=== PATIENT | female | born 1995 | race Caucasian/White ===

== ENCOUNTER 2018-07-17 20:56 | Emergency (ER) | payer BC, OTHER ==
--- NOTE | 2018-07-17 20:59 | PDOC ---
Rapid Medical Evaluation Time Seen by Provider: 07/17/18 20:59 Medical Evaluation: Allergies Allergy/AdvReac Type Severity Reaction Status Date / Time No Known Allergies Allergy Verified 09/25/14 15:16 07/17/18 20:59 I have performed a brief in-person evaluation of this patient. The patient presents with a chief complaint of: R sided CP that started tonight. No sob, diaphoresis, n/v palpitations, leg pain/swelling. No illit drug use. No tob use. No sig fmhx, No RF for DVT/PE Pertinent physical exam findings:appears uncomfortable and crying at triage, stable by vitals I have ordered the following: The patient will proceed to the ED for further evaluation. Discharge Disposition - Diagnosis Chest pain Qualifiers: Chest pain type: unspecified Qualified Code(s): R07.9 - Chest pain, unspecified - Referrals - Patient Instructions - Post Discharge Activity
[2018-07-17 21:02] VITALS: BP 140/89; PULSE 74; TEMP 98.3; BMI 23.3
--- NOTE | 2018-07-17 22:16 | PDOC ---
History of Present Illness - General Chief Complaint: Chest Pain Stated Complaint: CHEST PAIN Time Seen by Provider: 07/17/18 20:59 History Source: Patient - History of Present Illness Initial Comments: 07/17/18 23:33 23-year-old complaining of right breast pain and right sided chest pain since this afternoon. Patient reports that the pain is worse with moving and breathing. Patient currently not on OCP, denies prolonged sitting, recent travel. Denies nausea, vomiting, left-sided chest pain, diaphoresis,. Has no past medical history. Past History - Past Medical History Allergies/Adverse Reactions: Allergies Allergy/AdvReac Type Severity Reaction Status Date / Time No Known Allergies Allergy Verified 07/17/18 21:02 Home Medications: Ambulatory Orders Ibuprofen 600 mg PO QID PRN #30 tablet 07/17/18 COPD: No - Immunization History Immunization Up to Date: Yes - Suicide/Smoking/Psychosocial Hx Smoking Status: No Smoking History: Unknown if ever smoked Have you smoked in the past 12 months: No Number of Cigarettes Smoked Daily: 0 Information on smoking cessation initiated: No Hx Alcohol Use: No Drug/Substance Use Hx: No Substance Use Type: None Review of Systems - Review of Systems Able to Perform ROS?: Yes Is the patient limited Korean proficient: No Constitutional: No: Symptoms Reported, See HPI, Chills, Diaphoresis, Fever, Loss of Appetite, Malaise, Night Sweats, Weakness, Weight Stable, Unintentional Wgt. Loss, Unexplained wgt Loss, Other Cardiac (ROS): Yes: Chest Pain. No: Symptoms Reported, See HPI, Edema, Irregular Heart Rate, Lightheadedness, Palpitations, Syncope, Chest Tightness, Other *Physical Exam - Vital Signs Last Vital Signs Temp Pulse Resp BP Pulse Ox 98.3 F 74 16 140/89 100 07/17/18 20:59 07/17/18 20:59 07/17/18 20:59 07/17/18 20:59 07/17/18 20:59 - Physical Exam General Appearance: Yes: Appropriately Dressed Respiratory/Chest: positive: Chest Tender (right-sided chest tendernesson palpation), Lungs Clear, Normal Breath Sounds Cardiovascular: positive: Regular Rhythm, Regular Rate Gastrointestinal/Abdominal: positive: Normal Bowel Sounds, Soft Extremity: positive: Normal Capillary Refill Integumentary: positive: Normal Color, Dry, Warm Neurologic: positive: Fully Oriented, Alert Heart Score/ECG Review - ECG Intrepretation Rhythm: Regular Rhythm Comment:: 07/17/18 23:34 NSR: 70 bpm ED Treatment Course - ADDITIONAL ORDERS Additional order review: Laboratory Results 07/17/18 22:26 Urine HCG, Qual Negative - RADIOLOGY Radiology Studies Ordered: Category Date Time Status CHEST PA & LAT [RAD] Stat Radiology 07/17/18 22:16 Taken - Medications Given in the ED: ED Medications Discontinued Medications Generic Name Dose Route Start Last Admin Trade Name Freq PRN Reason Stop Dose Admin Ibuprofen 600 mg 07/17/18 22:47 07/17/18 23:20 Motrin - PO 07/17/18 22:48 600 mg ONCE ONE Administration Medical Decision Making - Medical Decision Making 07/17/18 23:35 costochondritis /chest pain p: chest x-ray nSAIDs *DC/Admit/Observation/Transfer Diagnosis at time of Disposition: Costochondritis, acute Chest pain Qualifiers: Chest pain type: unspecified Qualified Code(s): R07.9 - Chest pain, unspecified - Discharge Dispostion Disposition: HOME - Prescriptions Prescriptions: Ibuprofen 600 mg PO QID PRN #30 tablet PRN Reason: Pain - Referrals - Patient Instructions Printed Discharge Instructions: DI for Costochondritis Additional Instructions: Take ibuprofen every 6 hours as needed for pain. You may apply warm compress or ice to the area. Do light stretches. It is important that you follow-up with your doctor as soon as possible. Return to the emergency room for any worsening symptoms. - Post Discharge Activity Forms/Work/School Notes: Back to Work
[2018-07-17] MEDS ORDERED: IBUPROFEN 600 MG TABLET (FP) PO ONE ×2 (22:47→23:13)
--- NOTE | 2018-07-18 12:08 | EKG ---
Test Reason : Blood Pressure : / mmHG Vent. Rate : 070 BPM Atrial Rate : 070 BPM P-R Int : 150 ms QRS Dur : 098 ms QT Int : 358 ms P-R-T Axes : 071 083 047 degrees QTc Int : 386 ms NORMAL SINUS RHYTHM WITH SINUS ARRHYTHMIA NORMAL ECG NO PREVIOUS ECGS AVAILABLE Confirmed by MD Neymar, Kash ([id number]) on 07/18/2018 12:08:16 PM Referred By: Confirmed By:Kash Blackmon MD
== END 2018-07-17 23:48 | disposition home or self-care (01) ==
LOC: JER 20:56
DX: R07.9 Chest pain, unspecified (principal)
CPT/HCPCS: 71046-TC-FY; 84703; 93005; 93010; 99282-25

== ENCOUNTER 2019-03-12 14:01 | Emergency (ER) | payer BC, OTHER ==
[2019-03-12 14:07] VITALS: BP 123/90; PULSE 95; TEMP 99.5; BMI 24.6
[2019-03-12] MEDS ORDERED: SODIUM CHLORIDE 1,000 ML IV STA (14:09)
[2019-03-12] MEDS ORDERED: METOCLOPRAMIDE HCL INJECTION 10 MG/2 ML VIAL IVPB ONE (14:09)
[2019-03-12] MEDS ORDERED: ACETAMINOPHEN 1000 MG/100 ML VIAL (NON FORMULARY) IVPB ONE (14:09)
--- NOTE | 2019-03-12 14:09 | PDOC ---
Rapid Medical Evaluation Chief Complaint: Cold Symptoms Medical Evaluation: Allergies Allergy/AdvReac Type Severity Reaction Status Date / Time No Known Allergies Allergy Verified 03/12/19 14:05 Vital Signs Temp Pulse Resp BP Pulse Ox 99.5 F 95 H 18 123/90 100 03/12/19 14:05 03/12/19 14:05 03/12/19 14:05 03/12/19 14:05 03/12/19 14:05 I have performed a brief in-person evaluation of this patient. The patient presents with a chief complaint of: L temporal BALES radiating down side of face x 3 days; +nausea; denies changes in vision; patient also currently with cold like sxs Pertinent physical exam findings: in nad, slight congestion, no sinus tenderness , no focal deficits I have ordered the following: tylenol, reglan, IVF The patient will proceed to the ED for further evaluation. 03/12/19 14:07
[2019-03-12] MEDS ORDERED: PSEUDOEPHEDRINE HCL 60 MG TABLET PO ONE (16:03)
[2019-03-12] MEDS ORDERED: ACETAMINOPHEN 500 MG TABLET (FP) PO ONE (16:06)
[2019-03-12] MEDS ORDERED: PSEUDOEPHEDRINE HCL 60 MG TABLET ONE (16:09)
--- NOTE | 2019-03-12 17:19 | PDOC ---
History of Present Illness - General Chief Complaint: Cold Symptoms Stated Complaint: LT SIDE FACE PAIN/COUGHING Time Seen by Provider: 03/12/19 14:06 - History of Present Illness Initial Comments: 03/12/19 17:16 23-year-old female with flulike symptoms x4 days no comorbidities Past History - Past Medical History Allergies/Adverse Reactions: Allergies Allergy/AdvReac Type Severity Reaction Status Date / Time No Known Allergies Allergy Verified 03/12/19 14:05 Home Medications: Ambulatory Orders Ibuprofen 600 mg PO QID PRN #30 tablet 07/17/18 Budesonide [Rhinocort Allergy] 1 spray NS ONCE #1 spray.pump 03/12/19 Cetirizine HCl/Pseudoephedrine [Zyrtec-D Tablet] 1 each PO DAILY #30 tab.er.12h 03/12/19 COPD: No - Immunization History Immunization Up to Date: Yes - Psycho Social/Smoking Cessation Hx Smoking Status: No Smoking History: Never smoked Have you smoked in the past 12 months: No Number of Cigarettes Smoked Daily: 0 Hx Alcohol Use: No Drug/Substance Use Hx: No Substance Use Type: None Review of Systems - Review of Systems Constitutional: Yes: Fever HEENTM: Yes: Nose Congestion Respiratory: Yes: Cough Neurological: Yes: Headache *Physical Exam - Vital Signs Last Vital Signs Temp Pulse Resp BP Pulse Ox 99.5 F 95 H 18 123/90 100 03/12/19 14:05 03/12/19 14:05 03/12/19 14:05 03/12/19 14:05 03/12/19 14:05 - Physical Exam 03/12/19 17:17 GENERAL: The patient is awake, alert, and fully oriented, in no acute distress. HEAD: Normal with no signs of trauma. EYES: sclera anicteric, conjunctiva clear. ENT: Ears normal tympanic membranes normal oropharynx clear uvula midline tympanic membrane slightly bulging on left NECK: Normal range of motion LUNGS: Breath sounds equal, clear to auscultation bilaterally. No wheezes, and no crackles. HEART: S1 and S2 without murmur, rub or gallop. ABDOMEN: Soft, nontender, normoactive bowel sounds. No guarding, no rebound. No masses. EXTREMITIES: Normal range of motion, no edema. No clubbing or cyanosis. No cords, erythema, or tenderness. NEUROLOGICAL: Cranial nerves II through XII grossly intact. Normal speech, normal gait. PSYCH: Normal mood, normal affect. SKIN: Warm, Dry, normal turgor, no rashes or lesions noted. ED Treatment Course - Medications Given in the ED: ED Medications Discontinued Medications Generic Name Dose Route Start Last Admin Trade Name Cherelle PRN Reason Stop Dose Admin Acetaminophen 1,000 mg 03/12/19 14:09 03/12/19 16:05 Ofirmev Injection - IVPB 03/12/19 14:10 Not Given ONCE ONE Acetaminophen 1,000 mg 03/12/19 16:06 03/12/19 16:14 Tylenol - PO 03/12/19 16:07 1,000 mg ONCE ONE Administration Sodium Chloride 1,000 mls @ 1,000 mls/hr 03/12/19 14:09 03/12/19 16:05 Normal Saline - IV 03/12/19 15:08 Not Given ASDIR STA Metoclopramide HCl 10 mg 03/12/19 14:09 03/12/19 16:05 Reglan Injection - IVPB 03/12/19 14:10 Not Given ONCE ONE Pseudoephedrine HCl 60 mg 03/12/19 16:03 03/12/19 16:12 Sudafed - PO 03/12/19 16:04 60 mg ONCE ONE Administration Medical Decision Making - Medical Decision Making 03/12/19 17:17 Most likely a viral upper respiratory infection. Recommend Sudafed and nasal spray follow-up with primary care physician Discharge - Discharge Information Problems reviewed: Yes Clinical Impression/Diagnosis: Viral URI with cough Condition: Stable Disposition: HOME - Admission No - Follow up/Referral Referrals: Rocio Messina MD [Staff Physician] - - Patient Discharge Instructions Patient Printed Discharge Instructions: DI for Viral Upper Respiratory Infection -- Adult Additional Instructions: Most likely viral upper respiratory infection. Return to the emergency room for worsening symptoms. Please take the prescribed medication as directed and follow-up with primary care physician in 2 to 3 days for further evaluation and treatment options. Return to the emergency room for worsening symptoms. Tylenol Motrin for any fevers - Post Discharge Activity
== END 2019-03-12 17:29 | disposition home or self-care (01) ==
LOC: JERFT 14:01
DX: J06.9 Acute upper respiratory infection, unspecified (principal); B97.89 Other viral agents as the cause of diseases classified elsewhere
CPT/HCPCS: 87804; 99281-25

== ENCOUNTER 2020-09-13 23:51 | Emergency (ER) | payer BC, OTHER ==
[2020-09-14 00:07] VITALS: BP 100/59; PULSE 62; TEMP 98.8; BMI 23.3
[2020-09-14] MEDS ORDERED: ONDANSETRON 4 MG/2 ML VIAL IVPUSH ONE (00:54)
[2020-09-14] MEDS ORDERED: SODIUM CHLORIDE 1,000 ML IV STA (00:54)
[2020-09-14] MEDS ORDERED: ONDANSETRON 4 MG/2 ML VIAL ONE (00:56)
== END 2020-09-14 02:15 | disposition home or self-care (01) ==
LOC: FER 23:51
PROC: 3E033NZ Introduction of Analgesics, Hypnotics, Sedatives into Peripheral Vein, Percutaneous Approach (ICD-10-PCS; principal; 2020-09-14)
PROC: 3E0337Z Introduction of Electrolytic and Water Balance Substance into Peripheral Vein, Percutaneous Approach (ICD-10-PCS; 2020-09-14)
DX: R11.10 Vomiting, unspecified (principal)
CPT/HCPCS: 99284-25

== ENCOUNTER 2021-02-04 04:56 | Emergency (ER) | payer BC, OTHER ==
[2021-02-04 05:21] VITALS: BMI 22.4
[2021-02-04] MEDS ORDERED: ACETAMINOPHEN 1000 MG/100 ML VIAL IVPB ONE (05:45)
[2021-02-04] MEDS ORDERED: FAMOTIDINE 20 MG/50 ML IVPB 20 MG/50 ML MG IVPB ONE ×2 (05:45→06:14)
[2021-02-04] MEDS ORDERED: ONDANSETRON 4 MG/2 ML VIAL IVPUSH ONE ×2 (05:45→11:20)
[2021-02-04] MEDS ORDERED: SODIUM CHLORIDE 0.9% 1000 ML INFUS.BAG IV ONE (05:45)
[2021-02-04] MEDS ORDERED: ACETAMINOPHEN INJECTION 100 ML IVPB ONE (06:13)
[2021-02-04] MEDS ORDERED: ONDANSETRON 4 MG/2 ML VIAL ONE (06:14)
[2021-02-04 06:41] LABS: HEMATOCRIT 40.6 % (32.4-45.2); HEMOGLOBIN 13.7 GM/dL (10.7-15.3); MCH 30.5 pg (25.7-33.7); MCHC 33.8 g/dl (32.0-36.0); MEAN CELL VOLUME 90.3 fl (80-96); MEAN PLT VOLUME 8.7 fl (7.5-11.1); PLATELET COUNT 183 10^3/uL (134-434); RDW 12.4 % (11.6-15.6); WHITE BLOOD COUNT 9.4 K/mm3 (4.0-10.0)
[2021-02-04 06:42] LABS: ALBUMIN 3.6 g/dl (3.4-5.0); BLOOD UREA NITROGEN 17.1 mg/dL (7-18); CALCIUM 8.6 mg/dL (8.5-10.1)
[2021-02-04 06:45] LABS: CREATININE 0.8 mg/dL (0.55-1.3)
[2021-02-04 06:47] LABS: BILIRUBIN,TOTAL 0.6 mg/dL (0.2-1); TOT PROT 6.9 g/dl (6.4-8.2)
[2021-02-04 08:39] LABS: ANISOCYTOSIS 0; MACROCYTOSIS 0; PLATELET ESTIMATE NORMAL
[2021-02-04] MEDS ORDERED: MAG HYDROX/AL HYDROX/SIMETH 30 ML UNIT-DOSE CUP PO ONE (09:13)
[2021-02-04] MEDS ORDERED: SUCRALFATE 1 GM/10 ML UNIT DOSE CUPS PO ONE (09:13)
[2021-02-04 12:50] VITALS: BP 112/78; PULSE 72; TEMP 98.4
== END 2021-02-04 12:40 | disposition home or self-care (01) ==
LOC: JER 04:56
PROC: 3E0333Z Introduction of Anti-inflammatory into Peripheral Vein, Percutaneous Approach (ICD-10-PCS; principal; 2021-02-04)
PROC: 3E033GC Introduction of Other Therapeutic Substance into Peripheral Vein, Percutaneous Approach (ICD-10-PCS; 2021-02-04)
PROC: 3E033GC Introduction of Other Therapeutic Substance into Peripheral Vein, Percutaneous Approach (ICD-10-PCS; 2021-02-04)
DX: R10.13 Epigastric pain (principal); R11.2 Nausea with vomiting, unspecified
CPT/HCPCS: 36415; 76705-TC; 80053; 83690; 84703; 85025; 99285-25; J0131

== ENCOUNTER 2021-05-05 11:00 | Emergency (ER) | payer BC, OTHER ==
[2021-05-05 11:04] VITALS: BP 117/76; PULSE 91; TEMP 99; BMI 25.8
[2021-05-05 12:38] LABS: PH,URINE 6.5 (5.0-8.0); URINE APPEARANCE CLOUDY; URINE BILIRUBIN NEGATIVE (NEGATIVE); URINE COLOR YELLOW; URINE GLUCOSE (UA) NEGATIVE (NEGATIVE); URINE KETONE TRACE (NEGATIVE); URINE LEUK ESTERASE NEGATIVE (NEGATIVE); URINE NITRITE NEGATIVE (NEGATIVE); URINE PROTEIN TRACE (NEGATIVE)
[2021-05-05 12:40] LABS: HCG,QUALITATIVE URINE Positive
[2021-05-05 13:45] LABS: BASO % 0.3 % (0-2.0); EOS % 0.7 % (0-4.5); HEMATOCRIT 37.6 % (32.4-45.2); HEMOGLOBIN 12.8 GM/dL (10.7-15.3); LYMPH % 16.5 % (8-40); MCH 30.6 pg (25.7-33.7); MCHC 34.2 g/dl (32.0-36.0); MEAN CELL VOLUME 89.6 fl (80-96); MEAN PLT VOLUME 8.2 fl (7.5-11.1); MONO % 6.7 % (3.8-10.2); NEUT % 75.8 % (42.8-82.8); PLATELET COUNT 187 10^3/uL (134-434); RBC 4.19 M/mm3 (3.60-5.2); RDW 12.8 % (11.6-15.6); WHITE BLOOD COUNT 6.2 K/mm3 (4.0-10.0)
== END 2021-05-05 15:25 | disposition home or self-care (01) ==
LOC: JER 11:00
DX: O20.0 Threatened abortion (principal)
CPT/HCPCS: 36415; 76817-TC; 81003; 84702; 84703; 85025; 86850; 86900; 86901; 87086; 87491; 87591; 99284-25